=== PATIENT | male | born 1990 | race Caucasian/White ===

== ENCOUNTER 2017-07-31 12:17 | Emergency (ER) | payer BC ==
[~2017-07-31] VITALS: Ht 172.7 cm; Wt 61.7 kg
[2017-07-31 12:27] VITALS: Ht 172.7 cm; Wt 61.7 kg
[2017-07-31 12:58] LABS: microscopic required? NO
[2017-07-31 13:05] LABS: BASOPHIL % 0.2 % (0-2); PLATELET COUNT 222 x10^3mcL (130-400); RED CELL DISTRIBUTION WIDTH 12.8 % (11.5-14.5)
[2017-07-31 13:19] LABS: AMPHETAMINE QUAL UR NONE DETECTED (NEG <=1000)
[2017-07-31 13:20] LABS: CALCIUM 9.2 mg/dL (8.5-10.1); CARBON DIOXIDE 23.5 mmol/L (21-32); CHLORIDE SERUM 106 mmol/L (98-107); CREATININE SERUM 0.8 mg/dL (0.7-1.3); GFR1 > 60 mL/min; GLUCOSE SERUM 102 mg/dL (74-106); POTASSIUM SERUM 3.6 mmol/L (3.5-5.1); SODIUM SERUM 141 mmol/L (136-145)
[2017-07-31 13:24] LABS: ALBUMIN 4.7 g/dL (3.4-5.0); ALKALINE PHOSPHATASE 73 U/L (46-116); ALT/SGPT 25 U/L (16-63); AMYLASE 35 U/L (25-115); AST/SGOT 26 U/L (15-37); BILIRUBIN TOTAL 0.9 mg/dL (0.20-1.00); LIPASE 85 IU/L (73-393); TOTAL PROTEIN, SERUM 7.8 g/dL (6.4-8.2)
[2017-07-31 13:26] LABS: urine erythrocyte NEGATIVE (NEGATIVE)
[2017-07-31 14:19] VITALS: BP 128/67
== END 2017-07-31 14:19 | disposition home or self-care (01) ==
LOC: ED 12:17
PROVIDERS: Specialist
DX: R10.9 Unspecified abdominal pain (principal)
CPT/HCPCS: 83880; G0480; J2405; J3490